=== PATIENT | male | born 2000 | race Caucasian/White ===

== ENCOUNTER 2019-08-30 20:23 | Emergency (ER) | payer BC ==
[~2019-08-30] VITALS: Ht 172.7 cm; Wt 70.5 kg
[2019-08-30] MEDS ORDERED: ADDERALL10 MG PO (20:43)
[2019-08-30 22:07] VITALS: BP 116/66; PULSE 76
[2019-08-30 22:29] VITALS: TEMP 98.3
== END 2019-08-30 22:30 | disposition home or self-care (01) ==
LOC: COL.ER 20:23
DX: R50.9 Fever, unspecified (principal)
CPT/HCPCS: J1885; J2405; J7030